=== PATIENT | male | born 1980 | race Caucasian/White ===

== ENCOUNTER → 2016-05-15 09:07 | Outpatient (CLI) | payer OTHER ==
--- NOTE | 2016-05-29 19:05 | ST ---
PATIENT:OUMAR EVANS MEDICAL RECORD: [id number] SEX: M LOCATION:[facility] ORDER #: ADMISSION DATE: 05/15/16 AGE OF PATIENT: 35 REFERRING PHYSICIAN: INTERPRETING PHYSICIAN: DARÍO EWING DO DATE OF SERVICE: PROCEDURE: Stress test. INDICATIONS FOR TESTING: Palpitations and shortness of breath. This is a 35-year-old white male with recent history of palpitations and dyspnea, who underwent Cardiolite stress testing. He exercised a total of 11 minutes and 1 second. He achieved maximal heart rate of 171. He had normal blood pressure response and no ischemic changes were noted. Preprocedure EKG was normal with a rate of 88 and normal intervals. TRANSINT:[id number] Voice Confirmation ID: [id number] DOCUMENT ID: [id number] DARÍO EWING DO at 1905 CC: [id number] DICTATION DATE: 05/24/16 1356 TOOL ENGINEER: 05/24/16 1405 DEP CLI 05/15/16 [id number] [place] [address]
== END | disposition home or self-care (01) ==
LOC: D.CN 09:07
DX: R03.0 Elevated blood-pressure reading, without diagnosis of hypertension (principal); R07.89 Other chest pain